=== PATIENT | male | born 1990 | race Caucasian/White ===

== ENCOUNTER 2018-01-07 16:34 | Emergency (ER) | payer OTHER ==
[~2018-01-07] VITALS: Ht 180.3 cm; Wt 75.0 kg
[~2018-01-07 16:34] MED LIST: NO MEDS; PERCOCET 5/325M1 TAB OR
[2018-01-07 19:51] VITALS: BP 148/86
== END 2018-01-07 20:01 | disposition home or self-care (01) | DRG 103 ==
LOC: ED 16:34
DX: R51 Headache (principal); F17.290 Nicotine dependence, other tobacco product, uncomplicated